=== PATIENT | male | born 1985 | race Hispanic/Latino ===

== ENCOUNTER → 2024-12-10 | Outpatient (CLI) | payer BC ==
--- NOTE | 2024-12-16 16:59 | HMCSR ---
APPROVED REPORT Laterality: Bilateral Indications i70.213 VELOCITY AND DOPPLER WAVEFORM ANALYSIS SANDER SETTER (R) 123.9cm/sec, Triphasic, SANDER SETTER (L) 89.1cm/sec, Triphasic, Prof Fem Art. (R) 57.9cm/sec, Triphasic, Prof Fem Art. (L) 55.6cm/sec, Triphasic, Fem Art Prox. (R) 77.5cm/sec, Triphasic, Fem Art Prox. (L) 97.2cm/sec, Triphasic, Fem Art Mid. (R) 108.8cm/sec, Triphasic, Fem Art Mid. (L) 94.2cm/sec, Triphasic, Fem Art Dist (R) 63.5cm/sec, Triphasic, Fem Art Dist. (L) 53.8cm/sec, Triphasic, Pop Art(AK) (R) 54.4cm/sec, Triphasic, Pop Art (AK) (L) 45.4cm/sec, Triphasic, Pop Art (Fossa)(R) 64.5cm/sec, Triphasic, Pop Art (Fossa) (L) 46.5cm/sec, Triphasic, Pop Art(BK) (R) 87.3cm/sec, Triphasic, Pop Art (BK) (L) 55.0cm/sec, Triphasic, MATERIAL CONTROL ANALYST Prox. (R) 60.0cm/sec, Triphasic, MATERIAL CONTROL ANALYST Prox. (L) 62.8cm/sec, Triphasic, MATERIAL CONTROL ANALYST Mid. (R) 64.9cm/sec, Triphasic, MATERIAL CONTROL ANALYST Mid. (L) 72.5cm/sec, Triphasic, MATERIAL CONTROL ANALYST Dist. (R) 62.8cm/sec, Triphasic, MATERIAL CONTROL ANALYST Dist. (L) 75.2cm/sec, Triphasic, Per Art Prox. (R) 49.3cm/sec, Triphasic, Per Art Prox. (L) 54.4cm/sec, Triphasic, Per Art Mid. (R) 43.7cm/sec, Triphasic, Per Art Mid. (L) 55.0cm/sec, Triphasic, Per Art Dist. (R) 47.6cm/sec, Triphasic, Per Art Dist. (L) 37.7cm/sec, Triphasic, JEOVANY Prox. (R) 107.7cm/sec, Triphasic, JEOVANY Prox. (L) 91.4cm/sec, Triphasic, JEOVANY Mid. (R) 67.3cm/sec, Triphasic JEOVANY Mid. (L) 60.4cm/sec, Triphasic, JEOVANY Dist. (R) 88.8cm/sec, Triphasic, JEOVANY Dist. (L) 75.0cm/sec, Triphasic, Technologist Impression No evidence of significant arterial insufficiency of bilateral lower extremities. Multiphasic waveforms seen in bilateral lower extremities. Conclusion No evidence of significant arterial insufficiency of bilateral lower extremities. Multiphasic waveforms seen in bilateral lower extremities. Conclusion No evidence of significant arterial insufficiency of bilateral lower extremities. Multiphasic waveforms seen in bilateral lower extremities.
== END | disposition home or self-care (01) ==
LOC: SHCH 08:19
PROVIDERS: ATTEND Student in an Organized Health Care Education/Training Program
DX: I70.213 Atherosclerosis of native arteries of extremities with intermittent claudication, bilateral legs (principal)
CPT/HCPCS: 93925